=== PATIENT | male | born 1990 | race Two or more races ===

== ENCOUNTER 2021-01-07 17:39 | Emergency (ER) | payer OTHER ==
[~2021-01-07] VITALS: Ht 182.9 cm; Wt 93.0 kg
[2021-01-07 17:52] VITALS: BP 129/65
--- NOTE | 2021-01-07 18:17 | NUR ---
ALICIA SCHAFFER AT BEDSIDE FOR EVAL.
[2021-01-07] MEDS ORDERED: LIDOCAINE HCL/PF 1% 30 ML VIAL TP ONE (18:30)
[2021-01-07] MEDS ORDERED: TDAP [DIPH/PERTUSSIS/TET] 0.5 ML VIAL IM ONE ×2 (18:30→18:35)
[2021-01-07] MEDS ORDERED: LIDOCAINE /MPF 1% VIAL 5 ML VIAL ONE (18:35)
[2021-01-07] MEDS ORDERED: CEPH500C2 PO (19:25)
[2021-01-07] MEDS ORDERED: CEPHALEXIN MONOHYDRATE 500 MG CAPSULE PO ONE ×2 (19:28→19:30)
== END 2021-01-07 19:47 | disposition home or self-care (01) ==
LOC: ER 17:39
DX: S01.81XA Laceration without foreign body of other part of head, initial encounter (principal); W01.198A Fall on same level from slipping, tripping and stumbling with subsequent striking against other object, initial encounter; Y93.89 Activity, other specified; Y92.89 Other specified places as the place of occurrence of the external cause; Y99.8 Other external cause status
CPT/HCPCS: 12011; 90471; 90715; 99283; A6403; J3490 ×2

== ENCOUNTER 2021-01-24 17:37 | Emergency (ER) | payer OTHER ==
[~2021-01-24] VITALS: Ht 157.5 cm; Wt 72.6 kg
[~2021-01-24 17:37] MED LIST: CEPH500C2 PO
[2021-01-24 18:05] VITALS: BP 129/65
== END 2021-01-24 18:18 | disposition home or self-care (01) ==
LOC: ER 17:46
DX: S01.81XD Laceration without foreign body of other part of head, subsequent encounter (principal); F10.10 Alcohol abuse, uncomplicated; Y90.9 Presence of alcohol in blood, level not specified; Z79.899 Other long term (current) drug therapy; X58.XXXD Exposure to other specified factors, subsequent encounter

== ENCOUNTER 2021-01-31 02:30 | Emergency (ER) | payer OTHER ==
[~2021-01-31] VITALS: Ht 180.3 cm; Wt 92.1 kg
[2021-01-31 02:35] VITALS: BP 142/86
== END 2021-01-31 02:45 | disposition left against medical advice (07) ==
LOC: ER 02:35
DX: F41.9 Anxiety disorder, unspecified (principal); Z53.21 Procedure and treatment not carried out due to patient leaving prior to being seen by health care provider

== ENCOUNTER 2021-02-02 20:13 | Emergency (ER) | payer OTHER ==
[~2021-02-02] VITALS: Ht 182.9 cm; Wt 90.7 kg
--- NOTE | 2021-02-02 20:20 | NUR ---
DR. DEL REAL AT BS FOR BKAL.
[2021-02-02] MEDS ORDERED: LORAZEPAM 1 MG TABLET PO ONE (20:30)
--- NOTE | 2021-02-02 20:35 | NUR ---
BIBSELF C/O L SIDED CP S/P SMOKING WEED. STATING HE IS ANXIOUS. PT AAOX4, VSS. RR EVEN & UNLABORED. DENIES SOB, DIZZINESS, N/V AT THIS TIME. PT CALM & COOPERATIVE AT THIS TIME. WILL CONT TO MONITOR.
[2021-02-02] MEDS ORDERED: LORAZEPAM 0.5 MG TABLET ONE (20:37)
--- NOTE | 2021-02-02 20:43 | NUR ---
MEDICATED PER ERMD ORDER, PT KATHERINE WELL.
[2021-02-02 21:28] LABS: BASOPHILS % (AUTO) 0.5 % (0.0-2.0); EOSINOPHILS % (AUTO) 0.6 % (0.0-6.0); HEMATOCRIT 45 % (39-51); HEMOGLOBIN 15.3 g/dL (13.5-17.5); LYMPHOCYTES % (AUTO) 23.4 % (20.0-44.0); MEAN CORPUSCULAR HGB CONC 34 g/dl (31.0-36.0); MEAN CORPUSCULAR VOLUME 97 fL (80-96); MONOCYTES # (AUTO) 0.5 K/uL (0.1-1.30); MONOCYTES % (AUTO) 6.1 % (2.0-12.0); NEUTROPHILS # (AUTO) 6.1 K/uL (1.8-8.9); NEUTROPHILS % (AUTO) 69.4 % (43.0-81.0); PLATELET COUNT (AUTO) 218 K/uL (150-450); RED BLOOD CELL COUNT(AUTO) 4.66 MIL/uL (4.5-6.0); WHITE BLOOD COUNT (AUTO) 8.7 K/uL (4.3-11.0)
[2021-02-02] MEDS ORDERED: KETOROLAC TROMETHAMINE 15 MG/ML VIAL ONE (21:29)
[2021-02-02] MEDS ORDERED: KETOROLAC TROMETHAMINE INJ 30 MG/ML VIAL IV ONE (21:30)
[2021-02-02] MEDS ORDERED: IV NS 0.9% 1,000 ML BAG IV ONE (21:30)
[2021-02-02 22:01] LABS: CALCIUM, SERUM 9.2 mg/dL (8.5-10.1); CARBON DIOXIDE 22 mmol/L (21-32); CHLORIDE 101 mmol/L (98-107); CREATININE 1.1 mg/dL (0.6-1.3); GLUCOSE 83 mg/dL (74-106); POTASSIUM 3.7 mmol/L (3.5-5.1); SODIUM SERUM 138 mmol/L (136-145); UREA NITROGEN, BLOOD 17 mg/dL (7-18)
--- NOTE | 2021-02-02 22:54 | NUR ---
called lab to f/u on BNP
[2021-02-02 23:27] VITALS: BP 132/78
--- NOTE | 2021-02-02 23:27 | NUR ---
Patient discharged to home in stable condition. Written and verbal after care instructions given. Patient verbalizes understanding of instruction. IV removed. Catheter intact and site benign. Pressure and 4x4 applied to site. No bleeding noted.
== END 2021-02-02 23:27 | disposition home or self-care (01) ==
LOC: ER 20:13
DX: F41.9 Anxiety disorder, unspecified (principal); F12.90 Cannabis use, unspecified, uncomplicated; R07.89 Other chest pain
CPT/HCPCS: 36415; 71045; 80048; 83880; 84484; 85025; 85378; 93005 ×3; 93308; 96360; 99285; J7030; J1885